=== PATIENT | female | born 1970 | race Caucasian/White ===

== ENCOUNTER → 2020-08-27 10:34 | Outpatient (BNVA) | payer MEDICARE, SELFPAY | PROVIDERS: Visit Provider Family Medicine | DX: F98.8 Other specified behavioral and emotional disorders with onset usually occurring in childhood and adolescence (principal); I10 Essential (primary) hypertension; M72.2 Plantar fascial fibromatosis; F41.9 Anxiety disorder, unspecified; F32.9 Major depressive disorder, single episode, unspecified; R63.5 Abnormal weight gain; K21.9 Gastro-esophageal reflux disease without esophagitis; Z32.00 Encounter for pregnancy test, result unknown | CPT/HCPCS: 80053; 81025; 84443; 85025 ==

== ENCOUNTER → 2021-08-06 14:43 | Outpatient (BNVA) | payer OTHER, MEDICARE, SELFPAY | PROVIDERS: PCP Family Medicine; Visit Provider Family Medicine | DX: K21.9 Gastro-esophageal reflux disease without esophagitis (principal); F98.8 Other specified behavioral and emotional disorders with onset usually occurring in childhood and adolescence; I10 Essential (primary) hypertension; Z13.220 Encounter for screening for lipoid disorders; Z13.6 Encounter for screening for cardiovascular disorders; K44.9 Diaphragmatic hernia without obstruction or gangrene; F41.9 Anxiety disorder, unspecified; F32.9 Major depressive disorder, single episode, unspecified; H61.20 Impacted cerumen, unspecified ear; F90.8 Attention-deficit hyperactivity disorder, other type; Z68.39 Body mass index [BMI] 39.0-39.9, adult; H61.23 Impacted cerumen, bilateral; K21.00 Gastro-esophageal reflux disease with esophagitis, without bleeding; Z76.89 Persons encountering health services in other specified circumstances | CPT/HCPCS: 80053; 80061; 85025 ==

== ENCOUNTER 2021-08-28 08:55 | Outpatient (CLI) | payer OTHER, MEDICARE, SELFPAY ==
--- NOTE | 2021-08-28 09:16 | FL_ITS ---
WS: [id number] UPPER GI WITH AIR TECHNICAL: FLUOROSCOPY TIME: 3.0 minutes CLINICAL INFORMATION: K44.9 - Diaphragmatic hernia without obstruction or gangrene COMPARISON: None. FINDINGS: Swallowing: No aspiration or penetration. Esophagus: Normal caliber and motility. Moderate esophageal hiatal hernia with reflux esophagitis dis chantel esophagus. No high-grade obstructing stricture. Gastroesophageal reflux: Prominent reflux on the supine imaging to the upper thoracic esophagus Stomach: Prominent diffuse gastric rugal thickening consistent with gastritis. Normal emptying. Duodenum: Normal duodenal C-loop. Other findings: None. FL/FL upper GI w air* [id number] IMPRESSION: 1. Moderate esophageal hiatal hernia with reflux esophagitis in the distal eso phagus. 2. Prominent active reflux on the supine imaging to the upper thoracic esophag us. 3. Prominent gastritis. No visualized erosions. 4. Normal duodenum.
== END 2021-08-28 08:56 | disposition home or self-care (01) ==
PROVIDERS: PCP Family Medicine; Visit Provider Surgery
DX: K44.9 Diaphragmatic hernia without obstruction or gangrene (principal); K29.70 Gastritis, unspecified, without bleeding
CPT/HCPCS: 74246

== ENCOUNTER → 2022-03-23 13:58 | Outpatient (BNVA) | payer MEDICARE, SELFPAY | PROVIDERS: PCP Family Medicine; Visit Provider Counselor Professional | DX: F41.1 Generalized anxiety disorder (principal) | CPT/HCPCS: 90834 ==

== ENCOUNTER → 2022-08-12 13:34 | Outpatient (BNVA) | payer MEDICARE, SELFPAY | PROVIDERS: PCP Family Medicine; Visit Provider Family Medicine | DX: I10 Essential (primary) hypertension (principal); F90.8 Attention-deficit hyperactivity disorder, other type; Z79.899 Other long term (current) drug therapy | CPT/HCPCS: 80053; 80061; 83036; 84443; 85025 ==